=== PATIENT | male | born 1965 | race Caucasian/White ===

== ENCOUNTER 2017-01-24 10:12 | Inpatient (IN) | payer OTHER, MEDICAID ==
[~2017-01-24] VITALS: Ht 177.8 cm; Wt 69.8 kg
[~2017-01-24 10:12] MED LIST: ATENOLOL25 PO; BENZTROPINE2 MG PO; BUSPIRONE30 MG PO; CHLORPROMAZINE100 M1 PO; DIVALPROEX SOD500 M1 PO; PRA10 PO; RIS1 PO; RISPERIDONE3 MG; RISPERIDONE4 MG PO; TRAZODONE50 MG PO
[2017-01-24 11:04] LABS: BASOPHIL % 0.3 % (0-2); RED CELL DISTRIBUTION WIDTH 14.4 % (11.5-14.5)
[2017-01-24 11:06] LABS: PLATELET COUNT 114 x10^3mcL (130-400)
[2017-01-24 11:11] LABS: UA SPECIFIC GRAVITY 1.015 (1.005-1.035); microscopic required? YES; urine erythrocyte NEGATIVE (NEGATIVE)
[2017-01-24 11:18] LABS: CALCIUM 8.6 mg/dL (8.5-10.1); CARBON DIOXIDE 28.8 mmol/L (21-32); CHLORIDE SERUM 109 mmol/L (98-107); CREATININE SERUM 1.2 mg/dL (0.7-1.3); GFR1 > 60 mL/min; GLUCOSE SERUM 105 mg/dL (74-106); POTASSIUM SERUM 4.2 mmol/L (3.5-5.1); SODIUM SERUM 142 mmol/L (136-145)
[2017-01-24 11:22] LABS: ALKALINE PHOSPHATASE 59 U/L (46-116); ALT/SGPT 10 U/L (16-63); AST/SGOT 8 U/L (15-37); BILIRUBIN TOTAL 0.22 mg/dL (0.20-1.00); LIPASE 80 IU/L (73-393)
[2017-01-24 11:23] LABS: ALBUMIN 2.5 g/dL (3.4-5.0); TOTAL PROTEIN, SERUM 6.1 g/dL (6.4-8.2)
[2017-01-24] MEDS ORDERED: ATENOLOL50 MG PO (12:09)
[2017-01-24] MEDS ORDERED: AMLODIPINE BESYL5 M2 PO (12:10)
[2017-01-24] MEDS ORDERED: RISPERIDONE2 M1 PO (12:11)
[2017-01-24 13:03] LABS: CHOLESTEROL/HDL RATIO 2.1
[2017-01-24 13:11] LABS: T3 TOTAL 0.68 ng/mL
[2017-01-24 13:13] LABS: FREE T4 1.08 ng/dL (0.76-1.46); FREE THYROXINE INDEX 2.3 ug/dL (1.4-4.5); T4(THYROXINE) 6.5 ug/dL (4.7-13.3)
[2017-01-24 13:54] VITALS: BP 112/70
[2017-01-24 14:16] VITALS: Ht 177.8 cm; Wt 69.8 kg
[2017-01-24 17:58] LABS: AMPHETAMINE QUAL UR NONE DETECTED (NEG <=1000)
[2017-01-24 18:21] VITALS: BP 94/57
[2017-01-24] MEDS ORDERED: PRAVASTATIN SOD10 M1 PO (19:16)
[2017-01-25 05:39] VITALS: BP 124/67
[2017-01-25 06:59] LABS: CALCIUM 8.6 mg/dL (8.5-10.1); CARBON DIOXIDE 23.9 mmol/L (21-32); CHLORIDE SERUM 107 mmol/L (98-107); CREATININE SERUM 0.9 mg/dL (0.7-1.3); GFR1 > 60 mL/min; GLUCOSE SERUM 81 mg/dL (74-106); MAGNESIUM 1.8 mg/dL (1.8-2.4); PHOSPHOROUS 3.2 mg/dL (2.5-4.9); POTASSIUM SERUM 4.2 mmol/L (3.5-5.1); SODIUM SERUM 142 mmol/L (136-145)
[2017-01-25 07:18] LABS: BASOPHIL % 0.2 % (0-2); RED CELL DISTRIBUTION WIDTH 13.9 % (11.5-14.5)
[2017-01-25 07:27] LABS: PLATELET COUNT 101 x10^3mcL (130-400)
[2017-01-25 08:47] VITALS: BP 115/68
[2017-01-25 12:23] VITALS: BP 106/73
[2017-01-25 16:08] VITALS: BP 105/70
[2017-01-25 21:56] VITALS: BP 102/65
[2017-01-26 06:02] VITALS: BP 104/68
[2017-01-26 06:06] LABS: CALCIUM 8.3 mg/dL (8.5-10.1); CARBON DIOXIDE 27.1 mmol/L (21-32); CHLORIDE SERUM 107 mmol/L (98-107); GFR1 > 60 mL/min; GLUCOSE SERUM 100 mg/dL (74-106); MAGNESIUM 1.6 mg/dL (1.8-2.4); PHOSPHOROUS 3.7 mg/dL (2.5-4.9); POTASSIUM SERUM 4.4 mmol/L (3.5-5.1); SODIUM SERUM 141 mmol/L (136-145)
[2017-01-26 06:55] LABS: BASOPHIL % 0.1 % (0-2); RED CELL DISTRIBUTION WIDTH 13.6 % (11.5-14.5)
[2017-01-26 06:56] LABS: PLATELET COUNT 118 x10^3mcL (130-400)
[2017-01-26 10:00] VITALS: BP 108/70
[2017-01-26 15:40] VITALS: BP 105/69
[2017-01-26 18:20] VITALS: BP 88/56
[2017-01-26 21:30] VITALS: BP 99/65
[2017-01-27] VITALS (10 sets, daily range): BP systolic 95–123; BP diastolic 62–87
[2017-01-27 05:58] LABS: BASOPHIL % 0.3 % (0-2)
[2017-01-27 06:09] LABS: CALCIUM 8.3 mg/dL (8.5-10.1); CARBON DIOXIDE 28.5 mmol/L (21-32); CHLORIDE SERUM 108 mmol/L (98-107); GFR1 > 60 mL/min; GLUCOSE SERUM 91 mg/dL (74-106); MAGNESIUM 1.6 mg/dL (1.8-2.4); PHOSPHOROUS 3.8 mg/dL (2.5-4.9); SODIUM SERUM 141 mmol/L (136-145)
[2017-01-27 06:34] LABS: PLATELET COUNT 127 x10^3mcL (130-400)
[2017-01-28 06:06] VITALS: BP 121/77
[2017-01-28 07:08] LABS: BASOPHIL % 0.3 % (0-2); PLATELET COUNT 132 x10^3mcL (130-400)
[2017-01-28 07:10] LABS: CALCIUM 8.2 mg/dL (8.5-10.1); CARBON DIOXIDE 29.1 mmol/L (21-32); CHLORIDE SERUM 108 mmol/L (98-107); GFR1 > 60 mL/min; GLUCOSE SERUM 89 mg/dL (74-106); MAGNESIUM 1.6 mg/dL (1.8-2.4); PHOSPHOROUS 3.9 mg/dL (2.5-4.9); POTASSIUM SERUM 4.1 mmol/L (3.5-5.1); SODIUM SERUM 141 mmol/L (136-145)
[2017-01-28 09:00] VITALS: BP 120/82
[2017-01-28] MEDS ORDERED: LAC PO (14:12)
[2017-01-28] MEDS ORDERED: LEVAQUIN750 MG PO (14:12)
[2017-01-28] MEDS ORDERED: FLA500 PO (14:12)
[2017-01-28 14:52] VITALS: BP 120/82
== END 2017-01-28 20:25 | DRG 919 ==
LOC: ED 10:12 → DU 12:01 → MU 01-27 13:04
PROVIDERS: Emergency Medicine; Family Medicine; ADMIT Family Medicine
PROC: 0W9G3ZZ Drainage of Peritoneal Cavity, Percutaneous Approach (ICD-10-PCS; principal; 2017-01-27)
DX: K91.872 Postprocedural seroma of a digestive system organ or structure following a digestive system procedure (principal); E43 Unspecified severe protein-calorie malnutrition; N17.0 Acute kidney failure with tubular necrosis; N39.0 Urinary tract infection, site not specified; K59.00 Constipation, unspecified; F63.9 Impulse disorder, unspecified; F79 Unspecified intellectual disabilities; D64.9 Anemia, unspecified; Z68.24 Body mass index [BMI] 24.0-24.9, adult; Y83.8 Other surgical procedures as the cause of abnormal reaction of the patient, or of later complication, without mention of misadventure at the time of the procedure
CPT/HCPCS: 32557; 80307; 83880; 84439; J0696; J1956; J2001; J2060; J2405; J3475; J3490; J7030; Q0092; Q0161; Q9966; Q9967

== ENCOUNTER 2017-10-12 11:10 | Emergency (ER) | payer OTHER, MEDICAID ==
[~2017-10-12] VITALS: Ht 177.8 cm; Wt 75.0 kg
[~2017-10-12 11:10] MED LIST changes: +AMLODIPINE BESYL5 M2 PO; +ATENOLOL50 MG PO; +FLA500 PO; +LAC PO; +LEVAQUIN750 MG PO; +PRAVASTATIN SOD10 M1 PO; +RISPERIDONE2 M1 PO
[2017-10-12 12:28] VITALS: BP 147/96
== END 2017-10-12 12:28 | disposition home or self-care (01) ==
LOC: ED 11:10
DX: M70.22 Olecranon bursitis, left elbow (principal); F79 Unspecified intellectual disabilities